=== PATIENT | female | born 2000 | race Caucasian/White ===

== ENCOUNTER 2020-05-03 10:45 | Emergency (ER) | payer OTHER ==
[~2020-05-03] VITALS: Ht 170.2 cm; Wt 63.5 kg
[2020-05-03 11:02] VITALS: Ht 170.2 cm; Wt 63.5 kg
[2020-05-03 11:38] VITALS: BP 125/77
== END 2020-05-03 11:38 ==
LOC: ED 10:45
DX: Z02.89 Encounter for other administrative examinations (principal)